=== PATIENT | male | born 1945 | race Two or more races ===

== ENCOUNTER 2018-09-01 10:41 | Emergency (ER) | payer OTHER ==
--- NOTE | 2018-09-01 11:51 | ER Document Report ---
ED Medical Screen (RME) - General Chief Complaint: Back Pain Stated Complaint: BACK PAIN/COLD SYMPTOMS Time Seen by Provider: 09/01/18 11:38 Notes: 73-year-old pleasant male to the emergency department for evaluation of right posterior chest wall pain. Has not felt well for couple days. Drove 15 hours to be with his daughter who is having a baby. Having of some mild shortness of breath as well. I have greeted and performed a rapid initial assessment of this patient. A comprehensive ED assessment and evaluation of the patient, analysis of test results and completion of the medical decision making process will be conducted by additional ED providers. TRAVEL OUTSIDE OF THE [place] IN LAST 30 DAYS: No - Related Data Allergies/Adverse Reactions: No Known Allergies Allergy (Verified 09/01/18 10:45) Physical Exam - Vital signs Vitals: Temp Pulse Resp BP Pulse Ox 98.4 F 83 16 133/72 H 96 09/01/18 10:48 09/01/18 10:48 09/01/18 10:48 09/01/18 10:48 09/01/18 10:48 Course - Vital Signs Vital signs: Temp Pulse Resp BP Pulse Ox 98.4 F 83 16 133/72 H 96 09/01/18 10:48 09/01/18 10:48 09/01/18 10:48 09/01/18 10:48 09/01/18 10:48
[2018-09-01 12:21] LABS: APPEARANCE,URINE CLEAR; BILIRUBIN,URINE NEGATIVE (NEGATIVE); COLOR,URINE STRAW; GLUCOSE, URINE NEGATIVE (NEGATIVE); KETONES,URINE NEGATIVE (NEGATIVE); LEUKOCYTE ESTERASE,URINE NEGATIVE (NEGATIVE); NITRITE,URINE NEGATIVE (NEGATIVE); PROTEIN,URINE NEGATIVE (NEGATIVE); URINE SPECIFIC GRAVITY 1.003; UROBILINOGEN,URINE NEGATIVE mg/dL (<2.0)
[2018-09-01 12:32] LABS: ABSOLUTE EOSINOPHILS # (AUTO) 0.1 10^3/uL (0.0-0.6); ABSOLUTE LYMPHOCYTES (AUTO) 0.4 10^3/uL (0.5-4.7); ABSOLUTE MONOCYTES (AUTO) 0.4 10^3/uL (0.1-1.4); ABSOLUTE NEUT (AUTO) 4.2 10^3/uL (1.7-8.2); BASOPHILS % (AUTO) 0.4 % (0-2); EOSINOPHILS % (AUTO) 1.5 % (0-6); HEMATOCRIT 43.4 % (37.9-51.0); HEMOGLOBIN 14.5 g/dL (13.5-17.0); LYMPHOCYTES % (AUTO) 8.1 % (13-45); MEAN CORPUSCULAR HEMOGLOBIN 30.5 pg (27.0-33.4); MEAN CORPUSCULAR HGB CONC 33.3 g/dL (32.0-36.0); MEAN CORPUSCULAR VOLUME 92 fl (80-97); MONOCYTES % (AUTO) 7.9 % (3-13); PLATELET COUNT 243 10^3/uL (150-450); RED BLOOD COUNT 4.74 10^6/uL (4.35-5.55); RED CELL DISTRIBUTION WIDTH 13.6 % (11.5-14.0); SEGMENTED NEUTROPHILS % (AUTO) 82.1 % (42-78); TOTAL CELLS COUNTED % (AUTO) 100 %; WHITE BLOOD COUNT 5.2 10^3/uL (4.0-10.5)
[2018-09-01 12:39] LABS: ALANINE AMINOTRANSFERASE 19 U/L (21-72); ALBUMIN 4.8 g/dL (3.5-5.0); ALKALINE PHOSPHATASE 61 U/L (38-126); ANION GAP 10 (5-19); ASPARTATE AMINO TRANSFERASE 40 U/L (17-59); BILIRUBIN,DIRECT 0.2 mg/dL (0.0-0.4); BILIRUBIN,TOTAL 1.1 mg/dL (0.2-1.3); BLOOD UREA NITROGEN 13 mg/dL (7-20); CALCIUM 9.4 mg/dL (8.4-10.2); CARBON DIOXIDE 30 mmol/L (22-30); CHLORIDE 101 mmol/L (98-107); GLUCOSE 102 mg/dL (75-110); POTASSIUM 4.3 mmol/L (3.6-5.0); SODIUM 140.9 mmol/L (137-145); TOTAL PROTEIN 8.1 g/dL (6.3-8.2)
--- NOTE | 2018-09-01 12:39 | RADIOLOGY REPORT (SQ) ---
EXAM DESCRIPTION: CHEST 2 VIEWS COMPLETED DATE/TIME: 09/01/2018 12:26 pm REASON FOR STUDY: right sided lower chest pain COMPARISON: None. EXAM PARAMETERS: NUMBER OF VIEWS: two views TECHNIQUE: Digital Frontal and Lateral radiographic views of the chest acquired. RADIATION DOSE: NA LIMITATIONS: none FINDINGS: LUNGS AND PLEURA: No opacities, masses or pneumothorax. No pleural effusion. Hyperinflati on. MEDIASTINUM AND HILAR STRUCTURES: No masses or contour abnormalities. HEART AND VASCULAR STRUCTURES: Heart normal size. No evidence for failure. BONES: Disc degenerative disease of the thoracic spine. HARDWARE: None in the chest. OTHER: No other significant finding. IMPRESSION: Pulmonary hyperinflation without acute abnormality of the lungs. No focal airspace opac ity. TECHNICAL DOCUMENTATION: JOB ID: [id number] [employer]- All Rights Reserved Reading location - IP/workstation name: [email or web address]
[2018-09-01 13:29] LABS: A TYPE INFLUENZA AG NEGATIVE (NEGATIVE); B INFLUENZA AG NEGATIVE (NEGATIVE)
--- NOTE | 2018-09-01 14:14 | RADIOLOGY REPORT (SQ) ---
EXAM DESCRIPTION: CTA CHEST COMPLETED DATE/TIME: 09/01/2018 1:29 pm REASON FOR STUDY: sob elevated dimer COMPARISON: 09/01/2018 TECHNIQUE: CT scan of the chest performed using helical scanning technique with dynamic intravenous contrast injection. Images reviewed with lung, soft tissue and bone windows. Reconstructed coronal and sagittal MPR images reviewed. Additional 3 dimensional post-processing performed to develop Maximal Intensity Projection images (IA P). All images stored on PACS. All CT scanners at this facility use dose modulation, iterative reconstruction, and/or weight based d osing when appropriate to reduce radiation dose to as low as reasonably achievable (ALARA). [facility]: Dose Right [facility]: CareDose [facility]: Dose Right [facility]: Teradose 4D [facility]: [employer] CONTRAST TYPE AND DOSE: contrast/concentration: Isovue 350.00 mg/ml; Total Contrast Delivered: 69.0 ml; Total Saline Delivered: 107.0 ml 69 cc Omnipaque 350- low osmolar. Contrast bolus optimized for the pulmonary arteries. Not diagnostic for the aorta. RENAL FUNCTION: BUN 13, creatinine 0.71 RADIATION DOSE: CT Rad equipment meets quality standard of care and radiation dose reduction techniq ues were employed. CTDIvol: 18.4 - 19.8 mGy. DLP: 674 mGy-cm. . LIMITATIONS: None. FINDINGS: LUNGS AND PLEURA: Mild bilateral hypoventilatory change. No focal consolidation. No pleu ral effusion or pneumothorax. No suspicious nodules or masses. AORTA AND GREAT VESSELS: Minimal scattered atherosclerosis. No aneurysm. HEART: No significant effusion. Scattered coronary atherosclerosis. Enlarged right heart. PULMONARY ARTERIES: No visualized pulmonary emboli. Enlarged right to left ventricular ratio with fl attening of the interventricular septum which can be seen with elevated pulmonary artery pressures. HILAR AND MEDIASTINAL STRUCTURES: No identified masses or abnormal nodes. HARDWARE: None in the chest. UPPER ABDOMEN: Scattered subcentimeter hypodense hepatic lesions, likely cysts but indeterminate due to size. No evidence of acute intra- abdominal process in the visualized abdomen. Small hiatal jovan ia. THYROID AND OTHER SOFT TISSUES: No masses. No adenopathy. BONES: No acute bony abnormality. No suspicious osseous lesions. Mild thoracic spondylosis. Degene rative changes at the shoulders. 3D MIPS: Confirm above findings. OTHER: No other significant finding. IMPRESSION: 1. No evidence of pulmonary embolus or other acute intrathoracic process. 2. Enlarged right heart with flattening of the interventricular septum which can be seen with elevat ed right-sided pressures. COMMENT: Quality ID # [id number]: Final reports with documentation of one or more dose reduction techniques (e.g., Automated exposure control, adjustment of the mA and/or kV according to patient size, use of iterative reconstruction technique) TECHNICAL DOCUMENTATION: JOB ID: [id number] [employer]- All Rights Reserved Reading location - IP/workstation name: [email or web address]
--- NOTE | 2018-09-01 14:53 | ER Document Report ---
ED General - General Chief Complaint: Back Pain Stated Complaint: BACK PAIN/COLD SYMPTOMS Time Seen by Provider: 09/01/18 11:38 TRAVEL OUTSIDE OF THE [place] IN LAST 30 DAYS: No - HPI Patient complains to provider of: Dyspnea back pain Notes: Patient coming in for shortness of breath patient was seen in triage area by the provider Roderick [id number] pleasant male to the emergency department for evaluation of right posterior chest wall pain. Has not felt well for couple d ays. Drove 15 hours to be with his daughter who is having a baby. Having of some mild shortness of breath as well. Patient upon my evaluation states he was recently taken off of antibiotics because of respiratory tract infection. Patient states he did not receive flu shot however states he does not feel like he has the flu. Patient complaining of myalgias. Patient otherwise looks well patient denies any nausea vomiting diarrhea - Related Data Allergies/Adverse Reactions: No Known Allergies Allergy (Verified 09/01/18 10:45) Past Medical History - Social History Smoking Status: Former Smoker Frequency of alcohol use: None Drug Abuse: None Family History: Reviewed & Not Pertinent Patient has suicidal ideation: No Patient has homicidal ideation: No - Past Medical History Cardiac Medical History: Reports: Hx Hypercholesterolemia Renal/ Medical History: Reports: Hx Kidney Stones. Denies: Hx Peritoneal Dialysis Past Surgical History: Reports: Hx Vascular Surgery - varicose vein surgery Review of Systems - Review of Systems Constitutional: No symptoms reported EENT: No symptoms reported Cardiovascular: No symptoms reported Respiratory: Short of breath Gastrointestinal: No symptoms reported Genitourinary: No symptoms reported Male Genitourinary: No symptoms reported Musculoskeletal: Muscle pain Skin: No symptoms reported Hematologic/Lymphatic: No symptoms reported Neurological/Psychological: No symptoms reported Physical Exam - Vital signs Vitals: Temp Pulse Resp BP Pulse Ox 98.4 F 83 16 133/72 H 96 09/01/18 10:48 09/01/18 10:48 09/01/18 10:48 09/01/18 10:48 09/01/18 10:48 Interpretation: Normal - General General appearance: Appears well, Alert - HEENT Head: Normocephalic, Atraumatic Eyes: Normal Pupils: PERRL - Respiratory Respiratory status: No respiratory distress Chest status: Nontender Breath sounds: Normal Chest palpation: Normal - Cardiovascular Rhythm: Regular Heart sounds: Normal auscultation Murmur: No - Abdominal Inspection: Normal Distension: No distension Bowel sounds: Normal Tenderness: Nontender Organomegaly: No organomegaly - Back Back: Normal, Nontender - Extremities General upper extremity: Normal inspection, Nontender, Normal color, Normal ROM, Normal temperature General lower extremity: Normal inspection, Nontender, Normal color, Normal ROM, Normal temperature, Normal weight bearing. No: Gregg's sign - Neurological Neuro grossly intact: Yes Cognition: Normal Orientation: AAOx4 [place] Coma Scale Eye Opening: Spontaneous [place] Coma Scale Verbal: Oriented Lili Coma Scale Motor: Obeys Commands Lili Coma Scale Total: 15 Speech: Normal Motor strength normal: LUE, RUE, LLE, RLE Sensory: Normal - Psychological Associated symptoms: Normal affect, Normal mood - Skin Skin Temperature: Warm Skin Moisture: Dry Skin Color: Normal Course - Re-evaluation Re-evalutation: 09/01/18 18:33 Laboratory studies CTA does not show any signs of any critical pathology. No signs of pneumonia no signs of a pulmonary embolism. More likely patient has myalgias from underlying viral illness that is treated for with antibiotics. Patient is encouraged take Tylenol Motrin for pain control will be discharged on follow-up with his primary care physician - Vital Signs Vital signs: Temp Pulse Resp BP Pulse Ox 98.8 F 80 16 116/77 99 09/01/18 15:32 09/01/18 15:32 09/01/18 15:32 09/01/18 15:32 09/01/18 15:32 - Laboratory Result Diagrams: 09/01/18 12:00 09/01/18 12:00 Laboratory results interpreted by me: 09/01/18 09/01/18 09/01/18 12:00 12:00 12:00 Seg Neutrophils % 82.1 H Lymphocytes % 8.1 L Absolute Lymphocytes 0.4 L D-Dimer 0.83 H ALT 19 L Discharge - Discharge Clinical Impression: Flu-like symptoms, Myalgia Condition: Good Disposition: HOME, SELF-CARE Instructions: Ice Packs ([facility]), Low Back Pain ([facility]), Muscle Strain ([facility]), Myalagia (Muscle Pain) ([facility]), Warm Packs ([facility]) Additional Instructions: Your evaluation is not show any signs of a blood clot or any critical pathology on your examination I would recommend that you follow-up with your primary care physician take Tylenol Motrin for pain control you also may use warm packs and ice packs he may return to the ER for any concerning issues. Prescriptions: Ibuprofen [Motrin 600 mg Tablet] 600 mg PO Q8HP PRN #21 tablet PRN Reason:
[2018-09-01 15:33] VITALS: BP 116/77
--- NOTE | 2018-09-01 21:33 | EKG REPORT ---
SEVERITY:- BORDERLINE ECG - SINUS RHYTHM BORDERLINE ST ELEVATION IRBBB : Confirmed by: Dickson Ruiz 01-Sep-2018 21:32:30
== END 2018-09-01 15:34 | disposition home or self-care (01) ==
LOC: ER 10:41
DX: M79.10 Myalgia, unspecified site (principal); R06.02 Shortness of breath; R07.89 Other chest pain; Z87.891 Personal history of nicotine dependence
CPT/HCPCS: 36415; 71046; 71275; 80053; 81001; 85025; 85379; 87804; 93005; 93010; 99284